=== PATIENT | male | born 1995 | race African-American/Black ===

== ENCOUNTER 2023-10-29 10:13 | Outpatient (CLI) | payer OTHER | END 2023-10-29 10:14 | disposition home or self-care (01) | LOC: BICMRI 10:13 | PROVIDERS: ATTEND Family Medicine | DX: S60.221D Contusion of right hand, subsequent encounter (principal); S64.01XD Injury of ulnar nerve at wrist and hand level of right arm, subsequent encounter; M67.823 Other specified disorders of tendon, right elbow; M79.641 Pain in right hand; S56.511A Strain of other extensor muscle, fascia and tendon at forearm level, right arm, initial encounter; M65.831 Other synovitis and tenosynovitis, right forearm ==